=== PATIENT | female | born 1950 | race Caucasian/White ===

== ENCOUNTER 2019-01-28 14:25 | Observation (INO) | payer OTHER, MEDICARE ==
[~2019-01-28] VITALS: Ht 157.5 cm; Wt 113.7 kg
[2019-01-28] MEDS ORDERED: ASPIRIN 81 MG CHEW TAB PO ONE ×2 (15:00→15:45)
[2019-01-28] MEDS ORDERED: ASPIRIN 81 MG CHEW TAB ONE (15:05)
--- NOTE | 2019-01-28 15:13 | NUR ---
Ultrasound ETA is 30-40 minutes
--- NOTE | 2019-01-28 15:31 | Diagnostic Imaging Report ---
EXAM: PA and lateral views of the chest. COMPARISON: None CLINICAL HISTORY: ^20190128 ^1450 FINDINGS: Lines/tubes: None. Lungs: Lungs are well expanded. Mild central pulmonary vascular congestion. No lobar consolidations. Pleura: There is no pleural effusion or pneumothorax. Heart and mediastinum: The cardiac silhouette is mildly prominent. The pulmonary arteries appear mildly enlarged. Mild calcifications of the aortic arch. Bones and soft tissues: Mild degenerative changes of the thoracic spine. IMPRESSION: Mild enlargement of the cardiac silhouette with associated central pulmonary vascular congestion. Signed by: Dr. Bre Miranda M.D. on 01/28/2019 3:28 PM
[2019-01-28] MEDS ORDERED: MORPHINE SULFATE 2 MG/ML SYR 1ML IV PRN (15:45)
[2019-01-28] MEDS ORDERED: NITROGLYCERIN 0.4 MG SUBL SL PRN (15:45)
[2019-01-28] MEDS ORDERED: FAMOTIDINE 20 MG TAB PO SCH (15:45)
[2019-01-28] MEDS ORDERED: SODIUM CHLORIDE FLUSH 10 ML SYR INJ PRN (15:45)
[2019-01-28] MEDS ORDERED: ONDANSETRON HCL INJ 2MG/ML 2ML 2 MG/ML VIAL IV PRN (15:45)
--- NOTE | 2019-01-28 16:26 | NUR ---
Called [facility] to transport pt to room 109 ETA is 30-40 minutes.
--- NOTE | 2019-01-28 16:28 | Diagnostic Imaging Report ---
EXAM: Right Upper Quadrant Ultrasound INDICATION: COMPARISON: None. TECHNIQUE: Transverse and longitudinal images of the right upper abdomen were obtained. FINDINGS: Liver: Size: 16.6 cm in the right midclavicular line, normal Appearance: Increased echogenicity, smooth contour Mass: No focal masses Gallbladder: Stones/Sludge: Few small gallstones Wall: 0.2 cm Appearance: No wall thickening, pericholecystic fluid or hydrops. Sonographic Ga's Sign: Negative Bile Ducts: Intrahepatic Ducts: No dilatation Extrahepatic Ducts: Common bile duct measures 0.2 cm, no dilatation Pancreas: Not visualized due to overlying bowel gas. Kidneys: Length: Right 9.9 cm Echogenicity: Normal Collecting System: No hydronephrosis Stone: None Cyst/Mass: None Vessels: Aorta: Visualized portions are normal Inferior Vena Cava: Visualized portions are normal Main Portal Vein: 0.9 cm, normal size with hepatopetal flow. Free Fluid: No ascites or pleural effusion IMPRESSION: Suboptimal exam due to overlying bowel gas. Cholelithiasis. Hepatic steatosis. Signed by: Dr. Bre Miranda M.D. on 01/28/2019 4:25 PM
--- OUTSIDE RECORDS SUMMARY | 2019-01-28 16:28 | XMS REPORT ---
Author Author [facility] Address Unknown Phone Unavailable Care Team Providers Care Junior Architect Name Role Phone Sol DECKER Unavailable Unavailable Problems This patient has no known problems. Allergies, Adverse Reactions, Alerts This patient has no known allergies or adverse reactions. Medications This patient has no known medications. Results Test Description Test Time Test Comments Text Results Atomic Results Result Comments CXR 2 [facility] 2019-01-28 15:27:00 [place] [address] Patient Name: USAMA REYES MR #: [id number] : 1950 Age/Sex: 68/F Req #: [id number] Adm Physician: Ordered by: VIOLETTA DECKER MD Report #: [id number] Location: REPLACED BY [facility] Room/Bed: Procedure: [id number] HOPD/CXR 2 VIEW - [facility] Exam Date: 01/28/19 Exam Time: 1450 REPORT STATUS: Signed EXAM: PA and lateral views of the chest. COM PARISON: None CLINICAL HISTORY: [id number] FINDINGS: Lines/tubes: None. Lungs: Lungs are well expanded. Mild central pulmonary vascular congestion. No lobar consolidations. Pleura: There is no pleural effusion or pneumothorax. Heart and mediastinum: The cardiac silhouette is mildly prominent. The pulmonary arteries appear mildly enlarged. Mild calcifications of the aortic arch. Bones and soft tissues: Mild degenerative changes of the thoracic spine. IMPRESSION: Mild enlargement of the cardiac silhouette with associated central pulmonary vascular congestion. Signed by: Dr. Ronaldo Miranda M.D. on 01/28/2019 3:28 PM Dictated By: RONALDO MIRANDA MD 1528 Transcribed By: EUSEBIA on 01/28/19 1528 COPY TO: VIOLETTA DECKER MD
--- NOTE | 2019-01-28 16:33 | NUR ---
received report from FAY Mariee; awaiting pt's arrival to room 109.
[2019-01-28] MEDS ORDERED: FLONASE ALLERG9.9 ML (16:36)
[2019-01-28] MEDS ORDERED: GABAPENTIN300 MG PO (16:36)
[2019-01-28] MEDS ORDERED: LISINOPRIL10 MG PO (16:36)
--- NOTE | 2019-01-28 16:36 | NUR ---
Report to FAY Miramontes
[2019-01-28] MEDS ORDERED: FAMOTIDINE 20 MG TAB ONE (16:43)
--- NOTE | 2019-01-28 16:57 | NUR ---
Pt states that she cannot be admitted right now and needs to go home and get her puppy out of the crate and boarded before she can be admitted, she will try to come back tonight and be admitted later.
[2019-01-28 16:59] VITALS: BP 142/65
--- NOTE | 2019-01-28 23:10 | NUR ---
DC'D OUT OF SYSTEM, PT NEVER RETURNED TO BE ADMITTED ONCE LEFT AMA?
[2019-01-29] MEDS ORDERED: ASPIRIN 81 MG ENTERIC COATED PO SCH (09:00)
== END 2019-01-28 17:00 | disposition left against medical advice (07) ==
LOC: FSED 14:25 → ERHOLD 15:45
PROVIDERS: ADMIT Internal Medicine; ATTEND Internal Medicine
DX: R07.2 Precordial pain (principal); K80.70 Calculus of gallbladder and bile duct without cholecystitis without obstruction; I10 Essential (primary) hypertension; E78.5 Hyperlipidemia, unspecified
CPT/HCPCS: 71046; 76705; 80053; 83880; 84484; 85025; 99284; G0378; J2270; J2405

== ENCOUNTER 2019-01-29 10:01 | Emergency (ER) | payer OTHER, MEDICARE ==
[~2019-01-29 10:01] MED LIST: FLONASE ALLERG9.9 ML; GABAPENTIN300 MG PO; LISINOPRIL10 MG PO
--- NOTE | 2019-01-29 10:03 | NUR ---
PT CAME INTO ER AND STATED SHE NEEDED TO BE ADMITTED, PT STATED SHE WAS SEEN HERE YESTERDAY FOR CHEST PAIN AND WAS TO BE ADMITTED FOR OBSERVATION BUT PT LEFT AMA BECUASE SHE HAS A NEW PUPPY AT HOME. PT STATED SHE ONLY WANTS TO GO TO [facility] NOT [facility], I ASKED PT TO SIGN IN AND WE WOULD GET AN EKG AND LET THE DOCTOR SEE HER, PT REFUSED AND STATED SHE IS NOT HAVING CHEST PAIN AT THIS TIME AND HER EKG YESTERDAY WAS NORMAL. PT AGAIN STATED SHE WANTS TO BE ADMITTED TO [facility] ONLY, I EXPLAINED TO PT THAT WE WOULD GET HER BACK AND GET AN EKG AND ALLOW THE DOCTOR TO SEE HER, PT AGIAN REFUSED ALL CARE AND STATED SHE DOESNT NEED ANOTHER EKG SHE JUST WANTS TO BE ADMITTED TO [facility], PT REFUSED TO COME BACK TO TRIAGE, PT REFUSED EKG, PT REFUSED ANY AND ALL TREATMENT. PT STATED SHE WAS JUST GOING TO GO TO [facility] AND PT LEFT. CALLED ER CHARGE NURSE GRISELDA APONTE IN REGARDS TO PT CONCERNS.
== END 2019-01-29 10:38 | disposition short-term general hospital (02) ==
LOC: FSED 10:01
DX: R07.89 Other chest pain (principal)

== ENCOUNTER 2019-01-29 10:20 | Emergency (ER) | payer OTHER, MEDICARE ==
[~2019-01-29] VITALS: Ht 157.5 cm; Wt 113.4 kg
[2019-01-29 10:48] VITALS: BP 117/68
== END 2019-01-29 11:13 | disposition left against medical advice (07) ==
LOC: ER 10:20
DX: R07.89 Other chest pain (principal)
CPT/HCPCS: 93005